=== PATIENT | male | born 1970 | race Caucasian/White ===

== ENCOUNTER 2016-07-21 05:39 | Emergency (ER) | payer MEDICAID ==
[~2016-07-21] VITALS: Ht 188 cm; Wt 97.5 kg
[~2016-07-21 05:39] MED LIST: ACIFEX PO; ACIPHEX20 MG ORAL; AMITRIPTYLINE100 M1 ORAL; AMITRIPTYLINE100 MG ORAL; LEVAQUIN500 MG ORAL; METRONIDAZOLE500 MG ORAL; NORCO 10-325 T1 EACH PO; NORCO 10/3251 EA ORAL; OXYCONTIN40 MG PO; PERCOCET 10-321 EACH ORAL; PERCODAN TABLE1 EACH ORAL; PRILOSEC20 MG PO; PROTONIX20 MG ORAL; PROTONIX40 MG ORAL; REGLAN10 MG ORAL; REGLAN10 MG PO; XANAX1 MG PO; ZOFRAN ODT4 MG ORAL
[2016-07-21] MEDS ORDERED: levETIRAcetam 500 MG in D5W 110 ML IV ONE (05:45)
[2016-07-21] MEDS ORDERED: levETIRAcetam 500mg vial IV ONE (05:46)
[2016-07-21 05:54] VITALS: BP 133/92
[2016-07-21] MEDS ORDERED: Ketorolac 30mg Inj IV ONE (06:15)
[2016-07-21] MEDS ORDERED: KEPPRA500 M4 ORAL (07:21)
[2016-07-21 07:44] VITALS: BP 115/74
--- NOTE | 2016-07-21 07:48 | Emergency Room Report ---
Physical Exam Vital Signs Date Time Temp Pulse Resp B/P Pulse Ox O2 Delivery O2 Flow Rate FiO2 07/21/16 05:46 98.4 90 16 133/92 95 Room Air Medical Decision Making Diagnostic Impression: Primary Impression: Seizure ER Course Received signout from Dr Cai for re-eval and pending xrays of left shoulder and left hip No acute fx, dislocation, or soft tissue injury on ED review No additional seizure activity in ED Rx Keppra refilled by Dr Cai DC instructions given to patient for PMD followup No other acute issue in ED Other X-Ray Diagnostic Results Other X-Ray Diagnostic Results : X-Ray Ordered: Left shoulder EP Interpretation: Yes Findings: no fractures, no dislocation, no soft tissue swelling Number of Views: 3 Other Impression Left hip 2 views ED review No acute fracture, dislocation, or soft tissue injury Last Vital Signs Date Time Temp Pulse Resp B/P Pulse Ox O2 Delivery O2 Flow Rate FiO2 07/21/16 05:54 90 16 Room Air 07/21/16 05:54 98.4 133/92 95 Status: improved Disposition: HOME, SELF-CARE Condition: Stable Scripts Levetiracetam (KEPPRA) 500 Mg Tablet 500 MG ORAL EVERY 12 HOURS, #60 TAB 0 Refills Prov: Elbert Cai 07/21/16 Referrals: [facility]ERR[facility] (PCP) Patient Instructions: Seizure, Adult YURIY JAMES M.D. Jul 21, 2016 07:48
[2016-07-21 08:10] VITALS: BP 115/74
--- NOTE | 2016-07-21 10:35 | Diagnostic Imaging Report ---
Indication: Pain Findings: 3 views of the left shoulder were obtained. No acute fracture or malalignment identified. There is dense calcification adjacent to the greater tuberosity of the humerus consistent with calcific tendinopathy of the supraspinatus tendon. Impression: Calcific tendinopathy of the rotator cuff
--- NOTE | 2016-07-21 10:37 | Diagnostic Imaging Report ---
Indications: hip pain Findings: Two views of the left hip were obtained. There is narrowing of the left hip joint with osteophyte formation. No fracture is identified. There is convex, slightly protuberant bone at the lateral upper margin of the left head/neck junction. This predisposes to femoral acetabular impingement. Impression: No acute injury identified. Configuration of the left hip suggestive of femoral acetabular impingement. Please correlate clinically.
--- NOTE | 2016-07-22 08:29 | Emergency Room Report ---
History of Present Illness General Chief Complaint: Seizure Source: Patient, EMS Present Illness HPI Patient is a 46-year-old male presented after a reported tonic-clonic seizure. Patient prior history of seizure disorder and had not been taking his Keppra approximately 5 days. The patient denied any recent fever. He reported having pain to his left shoulder as well as to his left hip. Patient stated that he had prior history of chronic pain and had been taking oxycodone. He denied any headache or neck pain at this time. Allergies: Coded Allergies: No Known Allergies (Unverified , 11/14/11) Patient History Past Medical History: see triage record, seizures Reviewed Nursing Documentation: PMH: Agreed, PSxH: Agreed Nursing Documentation-PMH Hx Cardiac Problems: No Hx Hypertension: No Hx Pacemaker: No Hx Asthma: No Hx COPD: No Hx Diabetes: No Hx Cancer: No Hx Gastrointestinal Problems: Yes - cyclical vomiting syndrome Hx Dialysis: No Hx Cerebrovascular Accident: No Hx Seizures: No Hx Headaches: Yes Hx Weakness: No Review of Systems All Other Systems: negative except mentioned in HPI Physical Exam Vital Signs Date Time Temp Pulse Resp B/P Pulse Ox O2 Delivery O2 Flow Rate FiO2 07/21/16 05:46 98.4 90 16 133/92 95 Room Air Sp02 EP Interpretation: reviewed, normal General Appearance: normal inspection, well appearing, no apparent distress, alert, GCS 15 Head: atraumatic ENT: normal ENT inspection, hearing grossly normal, normal voice Neck: normal inspection, full range of motion, supple, no bony tend Respiratory: normal inspection, lungs clear, normal breath sounds, no respiratory distress, no retraction, no wheezing Cardiovascular #1: regular rate, rhythm, no edema Gastrointestinal: normal inspection, normal bowel sounds, non tender, soft, no guarding, no hernia Genitourinary: no CVA tenderness Musculoskeletal: normal inspection, back normal, normal range of motion Neurologic: normal inspection, alert, oriented x3, responsive, contact center assistant III-XII nml as tested, speech normal Psychiatric: normal inspection, judgement/insight normal, mood/affect normal Skin: normal inspection, normal color, no rash Medical Decision Making Diagnostic Impression: Primary Impression: Seizure ER Course Patient presented for this seizure. Differential diagnosis included cysticercosis, electrolyte abnormality, mass lesion, or cranial hemorrhage, shoulder dislocation,. Because of complexity of patient's case laboratory testing and imaging studies were ordered.X-ray imaging of the shoulder as well as hip were ordered. Laboratory testing was unremarkable. Patient was loaded with IV Keppra. He is given pain medication. The patient was endorsed to pending imaging studies. Last Vital Signs Date Time Temp Pulse Resp B/P Pulse Ox O2 Delivery O2 Flow Rate FiO2 07/21/16 08:10 75 12 115/74 98 Room Air 07/21/16 07:44 97.9 Status: improved Disposition: HOME, SELF-CARE Condition: Stable Scripts Levetiracetam (KEPPRA) 500 Mg Tablet 500 MG ORAL EVERY 12 HOURS, #60 TAB 0 Refills Prov: Elbert Cai 07/21/16 Referrals: [facility] (PCP) Patient Instructions: Seizure, Adult Elbert Cai Jul 22, 2016 08:29
== END 2016-07-21 08:10 | disposition home or self-care (01) ==
LOC: EDUNIT# 05:39 → EDBD 05:39 → EMR 06:10
DX: G40.409 Other generalized epilepsy and epileptic syndromes, not intractable, without status epilepticus (principal); M25.552 Pain in left hip; M75.32 Calcific tendinitis of left shoulder; Z91.14 Patient's other noncompliance with medication regimen
CPT/HCPCS: 73030; 73502; 96360; 96374; 96375; 99284; J1885; J1953; J7040